=== PATIENT | female | born 1990 | race Hispanic/Latino ===

== ENCOUNTER 2019-10-07 18:06 | Emergency (ER) | payer MEDICARE, MEDICAID ==
[~2019-10-07] VITALS: Ht 142.2 cm; Wt 45.3 kg
[2019-10-07 19:27] VITALS: BP 124/76
== END 2019-10-07 19:45 | disposition left against medical advice (07) ==
LOC: ED 18:06
DX: R51 Headache (principal); G80.9 Cerebral palsy, unspecified; Z79.891 Long term (current) use of opiate analgesic; Z91.19 Patient's noncompliance with other medical treatment and regimen